=== PATIENT | female | born 1985 | race Caucasian/White ===

== ENCOUNTER 2016-09-01 14:36 | Outpatient (CLI) | payer BC ==
[~2016-09-01 14:36] MED LIST: LEXAPRO5 MG PO; Motrin PO; Percocet 5/325,Endoc PO; Prefera-OB Plus DHA PO
[2016-09-01 14:58] VITALS: BP 118/74
[2016-09-01 16:11] LABS: ADD MIUA? NO; BILIRUBIN NEGATIVE; BLOOD NEGATIVE; COLOR YELLOW ((YELLOW)); GLUCOSE (STRIP) NEGATIVE; KETONES 5; LEUKOCYTES NEGATIVE; NITRITE NEGATIVE; PROTEIN (STRIP) NEGATIVE; SPECIFIC GRAVITY 1.004 (1.000-1.030); UCUL ADDED? NO; UROBILINOGEN 0.2 MG/DL (0.2-1.0)
[2016-09-01 16:28] VITALS: BP 113/72
[2016-09-01 17:10] LABS: CANDIDA DNA PROBE NEGATIVE; GARDNERELLA DNA PROBE NEGATIVE; INTERNAL CONTROL VALID? YES
[2016-09-01] MEDS ORDERED: FLAGYL500 MG PO (18:40)
== END 2016-09-01 19:07 | disposition home or self-care (01) ==
LOC: LDRP-OP 14:36 → 2WEST 14:37 → LDRP-OP 11-03 13:05
PROVIDERS: Midwife
DX: O60.03 Preterm labor without delivery, third trimester (principal); Z3A.35 35 weeks gestation of pregnancy; O99.343 Other mental disorders complicating pregnancy, third trimester; F41.0 Panic disorder [episodic paroxysmal anxiety]
CPT/HCPCS: 59025; 81003; 87480; 87510; 87660; G0378

== ENCOUNTER 2016-09-26 23:26 | Inpatient (IN) | payer BC ==
[~2016-09-26] VITALS: Ht 152.4 cm; Wt 68.5 kg
[~2016-09-26 23:26] MED LIST changes: +FLAGYL500 MG PO; +LEXAPRO10 MG PO; +PRENATAL TABLE1 EAC3 PO; +TYLENOL REGULA325 MG PO; +ZOFRAN4 MG PO
[2016-09-27] VITALS (9 sets, daily range): BP systolic 105–128; BP diastolic 58–76
[2016-09-27] MEDS ORDERED: ENDOCET 5-3251 EACH PO (03:32)
[2016-09-27] MEDS ORDERED: IBUPROFEN800 MG PO (03:32)
[2016-09-28 03:00] VITALS: BP 102/64
[2016-09-28 06:37] LABS: BASOPHIL COUNT 0.1 K/uL (0-0.1); EOSINOPHIL (%) 1.4 % (0-5); EOSINOPHIL COUNT 0.2 K/uL (0-0.3); IMMATURE GRANULOCYTE (%) 2.3 % (0.0-0.7); IMMATURE GRANULOCYTE COUNT 0.2 K/uL; INSTRUMENT ABS NEUTROPHIL CT 6.8 K/uL; LYMPHOCYTE COUNT 2.4 K/uL (1.0-2.8); MCH 26.6 PG (29.0-34.0); MCHC 31.7 G/DL (30.0-36.0); MCV 83.9 FL (83-99); MEAN PLAT.VOLUME 11.3 uM^3 (9.5-12.4); MONOCYTE (%) 7.8 % (3-12); MONOCYTE COUNT 0.8 K/uL (0-0.8); NEUTROPHIL (%) 64.9 % (45-76); NEUTROPHIL COUNT 6.8 K/uL (1.8-6.4); PLATELET COUNT 160 K/uL (156-360); RBC DIS.WIDTH-CV 14.6 % (11.8-14.6); RBC DIS.WIDTH-SD 44.3 % (39-53); WHITE BLOOD COUNT 10.5 K/uL (4.1-10.2)
[2016-09-28 07:01] LABS: RED BLOOD COUNT 2.86 M/uL (3.80-5.20)
[2016-09-28 19:00] VITALS: BP 134/77
[2016-09-28 23:00] VITALS: BP 115/70
[2016-09-29 03:00] VITALS: BP 108/79
[2016-09-29 07:26] VITALS: BP 102/70
== END 2016-09-29 10:45 | disposition home or self-care (01) | DRG 766 ==
LOC: LDRP-OP 23:26 → 2WEST 23:27 → LDRP-OP 11-03 19:37
PROVIDERS: Obstetrics & Gynecology
PROC: 10D00Z1 Extraction of Products of Conception, Low, Open Approach (ICD-10-PCS; principal; 2016-09-27)
DX: O34.211 Maternal care for low transverse scar from previous cesarean delivery (principal); O69.81X0 Labor and delivery complicated by cord around neck, without compression, not applicable or unspecified; O99.824 Streptococcus B carrier state complicating childbirth; O99.02 Anemia complicating childbirth; D64.9 Anemia, unspecified; Z3A.39 39 weeks gestation of pregnancy; Z37.0 Single live birth; O99.344 Other mental disorders complicating childbirth; F41.9 Anxiety disorder, unspecified; O99.353 Diseases of the nervous system complicating pregnancy, third trimester; G43.909 Migraine, unspecified, not intractable, without status migrainosus
CPT/HCPCS: 36415; 85025; 86900; 86901; 87086; G0378; J0690; J2274; J7030; J7120